=== PATIENT | male | born 1985 | race Caucasian/White ===

== ENCOUNTER 2020-01-29 19:18 | Emergency (ER) | payer MEDICAID ==
[~2020-01-29] VITALS: Ht 182.9 cm; Wt 90.9 kg
[~2020-01-29 19:18] MED LIST: CLIN150C8 PO
[2020-01-29 20:48] LABS: CLARITY,URINE CLEAR (Clear); COLOR,URINE YELLOW (Yellow); GLUCOSE, URINE NEGATIVE (Neg); KETONES,URINE 40 mg/dl (Neg); LEUKOCYTE ESTERASE ,URINE NEGATIVE (Neg); NITRITES, URINE NEGATIVE (Neg); OCCULT BLOOD,URINE SMALL (Neg); PH,URINE 5.5 (4.8-8.0); PROTEIN,URINE 30 mg/dl (Neg); UA COLLECTION TYPE CLN CATCH MIDSTREAM; UROBILINOGEN,URINE 0.2 E.U/dL (0.2-1.0)
[2020-01-29] MEDS ORDERED: normal saline 1000ml 1,000 ML IV ONE (20:55)
[2020-01-29] MEDS ORDERED: ondansetron/PF 4mg/2ml inj IV ONE (20:55)
[2020-01-29] MEDS ORDERED: morphine 4 MG/ML inj SYRINge IV ONE (20:55)
[2020-01-29 20:57] LABS: ALANINE AMINOTRANSFERASE 222 U/L (12-78); ALBUMIN 4.7 G/DL (3.4-5.0); ALBUMIN/GLOBULIN RATIO 1.1 (1.1-1.5); ALKALINE PHOSPHATASE 100 IU/L (46-116); ANION GAP 11 (8-16); ASPARTATE AMINO TRANSFERASE 113 U/L (10-37); BILIRUBIN,TOTAL 1.2 MG/DL (0.1-1.0); BLOOD UREA NITROGEN 9 MG/DL (7-18); CALCIUM 9.6 MG/DL (8.5-10.1); CHLORIDE 102 MMOL/L (99-107); GLUCOSE 140 MG/DL (70-104); LIPASE 316 U/L (73-393); POTASSIUM 3.4 MMOL/L (3.5-5.1); SODIUM 140 MMOL/L (135-145); TOTAL CARBON DIOXIDE 27.5 MMOL/L (24-32); TOTAL PROTEIN 8.8 G/DL (6.4-8.2); eGFR > 90 ML/MIN
[2020-01-29 20:59] LABS: BACTERIA,URINE NONE SEEN /HPF (Neg); RBC,URINE 0-2 /HPF (0-2); SQUAMOUS EPITHELIAL CELL,UR FEW /LPF (FEW); WBC,URINE 0-4 /HPF (0-4)
[2020-01-29 21:46] LABS: BASOPHILS % (AUTO) 0.3 % (0-1); EOSINOPHILS # (AUTO) 0.1 X10'3 (0-0.9); EOSINOPHILS % (AUTO) 1.2 % (0-6); LYMPHOCYTES # (AUTO) 1.5 X10'3 (1.1-4.8); LYMPHOCYTES % (AUTO) 16.8 % (21-51); MEAN CORPUSCULAR HEMOGLOBIN 37.8 PG (27.0-31.0); MEAN CORPUSCULAR HGB CONC 35.5 g/dL (33.0-36.5); MEAN CORPUSCULAR VOLUME 106.5 FL (78-98); MEAN PLATELET VOLUME 7.7 FL (7.4-10.4); MONOCYTES # (AUTO) 0.8 X10'3 (0-0.9); MONOCYTES % (AUTO) 8.4 % (2-12); NEUTROPHILS # (AUTO) 6.6 X10'3 (1.8-7.7); NEUTROPHILS % (AUTO) 73.3 % (42-75); PLATELET COUNT 321 X10'3 (140-440); RED BLOOD COUNT 4.94 X10'6 (4.70-6.10)
[2020-01-29 22:01] LABS: HEMATOCRIT 51.7 % (42.0-52.0)
[2020-01-29] MEDS ORDERED: morphine 10mg/ml inj. IV ONE (22:05)
[2020-01-29] MEDS ORDERED: NO HOME MEDS (22:31)
[2020-01-29] MEDS ORDERED: famotidine/PF 10 mg/ml inj IV ONE (22:40)
--- NOTE | 2020-01-29 22:45 | NUR ---
assumed care of patient . no changes to previous assessment . bolus complete iv patent . will comntinueto monitor and reassess.
[2020-01-29] MEDS ORDERED: iohexol 300mg/ml 100ml inj. ONE (23:24)
--- NOTE | 2020-01-29 23:39 | NUR ---
assisting RN with pt care, pt c/o epigastric pain 8-12/18, waiting for CT
[2020-01-30] MEDS ORDERED: ketorolac trometh. 30mg/ml inj. IV ONE (00:05)
[2020-01-30] MEDS ORDERED: fentaNYL/PF 50MCG/1 ML 2ML syringe IV ONE (00:05)
--- NOTE | 2020-01-30 00:16 | NUR ---
Pt medicated for pain as ordered.
[2020-01-30] MEDS ORDERED: ondansetron/PF 4mg/2ml inj IV ONE (00:45)
[2020-01-30] MEDS ORDERED: proCHLORperazine 10 MG/2 ml inj IV ONE (00:45)
[2020-01-30 00:47] LABS: URINE AMPHETAMINE SCREEN NEGATIVE (Neg); URINE BARBITUATE SCREEN NEGATIVE (Neg); URINE BENZODIAZEPINES SCREEN NEGATIVE (Neg); URINE CANNABINOID SCREEN POSITIVE (Neg); URINE COCAINE SCREEN NEGATIVE (Neg); URINE METHADONE SCREEN NEGATIVE (Neg); URINE OPIATE SCREEN NEGATIVE (Neg); URINE PHENCYCLIDINE SCREEN NEGATIVE (Neg)
[2020-01-30] MEDS ORDERED: dicyclomine 10mg/ml 2ml ampule IM ONE (01:15)
[2020-01-30] MEDS ORDERED: mag hydrox/Alum hydrox/simeth 30ml oral suspension PO ONE (01:15)
[2020-01-30] MEDS ORDERED: pantoprazole 40 MG vial IV ONE (01:15)
[2020-01-30] MEDS ORDERED: morphine 4 MG/ML inj SYRINge IV ONE (01:20)
[2020-01-30] MEDS ORDERED: ONDA4TAB6 PO (01:58)
[2020-01-30] MEDS ORDERED: PANT-47 PO (01:58)
[2020-01-30] MEDS ORDERED: HYDR-3965 PO (01:58)
[2020-01-30 02:54] VITALS: BP 116/58
== END 2020-01-30 02:45 | disposition home or self-care (01) ==
LOC: ER 19:18
DX: R10.13 Epigastric pain (principal); R11.2 Nausea with vomiting, unspecified; Z79.899 Other long term (current) drug therapy
CPT/HCPCS: 36415; 74177; 76700; 80053; 80305; 81001; 83690; 85025; 93005; 96361; 96372; 96374; 96375; 96376; 99285; C9113; J0500; J0780; J1885; J2270; J2405; J3010; J3490; J7030; Q9967

== ENCOUNTER 2021-07-18 12:38 | Emergency (ER) | payer MEDICAID ==
[~2021-07-18] VITALS: Ht 182.9 cm; Wt 121.5 kg
[~2021-07-18 12:38] MED LIST changes: -CLIN150C8 PO; +NO HOME MEDS; +ONDA4TAB6 PO; +PANT-47 PO
[2021-07-18 12:48] VITALS: BP 142/95
[2021-07-18] MEDS ORDERED: CEPH-585 PO (14:20)
[2021-07-18] MEDS ORDERED: ketorolac trometh. 30mg/ml inj. IM ONE (14:25)
== END 2021-07-18 14:51 | disposition home or self-care (01) ==
LOC: ER 12:39
DX: L73.9 Follicular disorder, unspecified (principal); Z72.89 Other problems related to lifestyle; Z79.2 Long term (current) use of antibiotics; Z79.899 Other long term (current) drug therapy
CPT/HCPCS: 96372; 99283; J1885

== ENCOUNTER 2022-04-23 18:09 | Emergency (ER) | payer MEDICAID ==
[~2022-04-23] VITALS: Ht 182.9 cm; Wt 90.0 kg
[~2022-04-23 18:09] MED LIST changes: +CEPH-585 PO
--- NOTE | 2022-04-23 18:18 | NUR ---
LEGAL INSTRUCTOR IN TRIAGE AND ORDERS GIVEN/ENTERED
[2022-04-23] MEDS ORDERED: ondansetron/PF 4mg/2ml inj IV ONE ×2 (18:30→19:20)
[2022-04-23] MEDS ORDERED: morphine 4 MG/ML inj SYRINge IV ONE ×3 (18:30→21:05)
[2022-04-23] MEDS ORDERED: OXYC-149 PO (19:22)
[2022-04-23] MEDS ORDERED: ONDA4TAB12 PO (19:22)
[2022-04-23] MEDS ORDERED: TETanus/Pertussis (Acell)/Diphther VAC/PF (Tdap-Adult) 0.5ml syringe IMVAC ONE (19:30)
[2022-04-23] MEDS ORDERED: ketorolac tromethamine 15mg/ml inj. IV ONE (20:20)
--- NOTE | 2022-04-23 20:54 | NUR ---
[employer] at bedside
[2022-04-23] MEDS ORDERED: morphine 4 MG/ML inj SYRINge ONE (21:09)
[2022-04-23 21:55] VITALS: BP 128/83
== END 2022-04-23 21:58 | disposition home or self-care (01) ==
LOC: ER 18:10
DX: S62.321A Displaced fracture of shaft of second metacarpal bone, left hand, initial encounter for closed fracture (principal); S62.323A Displaced fracture of shaft of third metacarpal bone, left hand, initial encounter for closed fracture; S62.325A Displaced fracture of shaft of fourth metacarpal bone, left hand, initial encounter for closed fracture; Z72.89 Other problems related to lifestyle; Z79.899 Other long term (current) drug therapy; V86.99XA Unspecified occupant of other special all-terrain or other off-road motor vehicle injured in nontraffic accident, initial encounter; Y93.89 Activity, other specified; Y92.488 Other paved roadways as the place of occurrence of the external cause; Y99.8 Other external cause status
CPT/HCPCS: 29125; 73090; 73100; 73120; 90471; 90715; 96374; 96375; 96376; 99284; J1885; J2270; J2405

== ENCOUNTER 2022-07-30 09:40 | Emergency (ER) | payer MEDICAID ==
[~2022-07-30] VITALS: Ht 182.9 cm; Wt 109.1 kg
[~2022-07-30 09:40] MED LIST changes: -CEPH-585 PO; +ONDA4TAB12 PO; +OXYC-149 PO
[2022-07-30 09:42] VITALS: BP 140/99
[2022-07-30] MEDS ORDERED: ketorolac trometh inj. 60 MG/2 ML VIAL IM ONE (10:55)
[2022-07-30] MEDS ORDERED: HYDROcodone/acetaminophen 10/325mg tab PO ONE (10:55)
[2022-07-30] MEDS ORDERED: ACET-1059 PO (11:17)
== END 2022-07-30 11:53 | disposition home or self-care (01) ==
LOC: ER 09:40
DX: S93.401A Sprain of unspecified ligament of right ankle, initial encounter (principal); S80.12XA Contusion of left lower leg, initial encounter; Z72.89 Other problems related to lifestyle; Z79.899 Other long term (current) drug therapy; W10.9XXA Fall (on) (from) unspecified stairs and steps, initial encounter; Y93.89 Activity, other specified; Y92.89 Other specified places as the place of occurrence of the external cause; Y99.8 Other external cause status
CPT/HCPCS: 73590; 73610; 99284; J1885; L4360